=== PATIENT | female | born 1930 | race Caucasian/White ===

== ENCOUNTER 2016-12-08 08:46 | Emergency (ER) | payer MEDICARE, BC ==
[~2016-12-08] VITALS: Ht 152.4 cm; Wt 71.5 kg
[2016-12-08] MEDS ORDERED: ZOLP10TA5 PO (08:57)
[2016-12-08] MEDS ORDERED: AMLO10TA2 PO (08:57)
[2016-12-08] MEDS ORDERED: SIMV20TA3 PO (08:57)
[2016-12-08] MEDS ORDERED: LOSA1TAB16 PO (08:57)
[2016-12-08 10:08] VITALS: BP 138/70
== END 2016-12-08 10:26 | disposition home or self-care (01) ==
LOC: ED 09:36
DX: J20.9 Acute bronchitis, unspecified (principal)
CPT/HCPCS: 71020; 99284

== ENCOUNTER → 2018-06-03 | Outpatient (CLI) | payer MEDICARE, BC ==
[~2018-06-03] MED LIST: AMLO10TA6 PO; LOSA1TAB19 PO; SIMV20TA3 PO; ZOLP10TA5 PO
== END | disposition home or self-care (01) ==
LOC: CVU 07:13 → EDSTATUS 08:00
PROVIDERS: ATTEND Internal Medicine
DX: I08.0 Rheumatic disorders of both mitral and aortic valves (principal); I11.9 Hypertensive heart disease without heart failure; E78.5 Hyperlipidemia, unspecified
CPT/HCPCS: 93306